=== PATIENT | female | born 1960 | race Caucasian/White ===

== ENCOUNTER 2021-05-07 09:45 | Emergency (ER) | payer BC, OTHER, SELFPAY ==
[2021-05-07 10:00] VITALS: BP 150/99; PULSE 98; RESP 16; TEMP 36.4; O2SAT 99
--- NOTE | 2021-05-07 10:00 | ED.EXTPRO ---
HPI - Extremity Problem General Chief complaint: Extremity Problem,Nontraumatic Stated complaint: left foot pain Time Seen by Provider: 05/07/21 10:06 Source: patient and RN notes reviewed Mode of arrival: ambulatory Limitations: no limitations History of Present Illness HPI Narrative: 60-year-old female presents concern for pain, redness, swelling to the base of the first digit of the left foot. She denies injury, trauma. Reports pain with walking. Reports she used ice, Devan wrap with only very mild relief. She denies any open skin, lacerations, abrasions. Denies any fluctuant areas. MD Complaint: extremity pain Related Data Home Medications Medication Instructions Recorded Confirmed escitalopram oxalate [Lexapro] 10 mg PO DAILY 05/07/21 05/07/21 hydrochlorothiazide 25 mg PO DAILY 05/07/21 05/07/21 simvastatin 40 mg PO DAILY 05/07/21 05/07/21 Allergies Allergy/AdvReac Type Severity Reaction Status Date / Time No Known Allergies Allergy Verified 05/07/21 10:09 Review of Systems Review of Systems: Narrative: CONSTITUTIONAL: Denies malaise, chills, sweats, or fever. CARDIOVASCULAR: Denies chest pain, palpitations, or edema. RESPIRATORY: Denies cough or dyspnea. SKIN: Denies abrasions, lacerations MUSCULOSKELETAL: Reports pain, swelling, redness, warmth of the base of the first digit of left foot NEUROLOGIC: Denies numbness, weakness All systems reviewed & are unremarkable except as noted in HPI and below PMFSH Comments At time of signature, agree with nursing past medical, surgical, social and family history. There is no relevant family history pertinent to the presenting complaint Exam Narrative: Exam Narrative: GENERAL: Well-appearing, well-nourished, and in no acute distress. HEAD: Normocephalic, atraumatic. EYES: PERRLA, conjunctivae clear NECK: Supple. CHEST: Speaks in full sentences. No respiratory distress. HEART: Regular rate and rhythm. Normal and equal peripheral pulses. EXTREMITIES: [Xxx] has normal strength and sensation, normal range of motion. No edema or ecchymosis. 5/5 strength with [xxx] flexion and extension. Normal sensation with sensitivity to light touch and pain. No point tenderness. No open wounds, no skin tenting, no devitalized tissue or atrophy, no trophic changes, no obvious deformity, alignment normal, nearby joints and structures intact. Distal pulses palpable and equal bilaterally, skin warm, dry, pink. Capillary refill less than 3 seconds. SKIN: Warm, dry, no rash. NEURO: Alert and oriented x3. PSYCH: Normal mood and affect Course Course Emergency Course: Patient is aware of diagnosis, understands and agrees to treatment plan. Anticipatory guidance given. Patient agrees to follow-up as directed and is aware of reasons to seek care at the emergency department. Portions of this record may have been created with voice recognition software Vital Signs Vital signs: Reviewed. MDM - Extremity (Nontraumatic) MDM Narrative Medical decision making narrative: Patients pain is consistent with musculoskeletal etiology. No signs of neurological or vascular compromise on exam. Compartments and tissues are soft without signs of compartment syndrome. Pain is felt appropriate for further evaluation on an outpatient basis. Critical Care Time Critical Care Time Critical Care Time: No Discharge Plan Discharge Clinical Impression: Gout Qualifiers: Gout site: foot Gout etiology: unspecified cause Chronicity: acute Laterality: left Qualified Code(s): M10.9 - Gout, unspecified Patient Disposition: Home, Self-Care Condition: Stable Instructions: Low Purine Diet (ED), Gout (ED) Additional Instructions: 1) Please follow-up with your primary care doctor in the next 1-2 days. 2) If you have any urgent concerns please go to the ER. 3) Please take medications as prescribed and continue taking your home medications as usual. 4) Please read and follow information included in discharge instruction
== END 2021-05-07 10:19 | disposition home or self-care (01) ==
PROVIDERS: Emergency Provider Nurse Practitioner; PCP Internal Medicine
DX: M10.9 Gout, unspecified (principal); F41.9 Anxiety disorder, unspecified
CPT/HCPCS: 99213; G0463

== ENCOUNTER 2023-03-10 09:31 | Outpatient (CLI) | payer BC, OTHER, SELFPAY ==
--- NOTE | 2023-03-10 10:30 | NEURO_ITS ---
Impression: Patient reports a history of numbness in both hands. # Early changes suggestive of evolving, mild left carpal tunnel syndrome. # Mild right carpal tunnel syndrome. # Normal needle/EMG exam. # Clinical correlation recommended. Nerve Conduction Studies Anti Sensory Summary Table Stim Site NR Peak (ms) P-T Amp (?V) Site1 Site2 Delta-P (ms) Dist (cm) Victor Manuel (m/s) Left Median Anti Sensory (2-3nd Digit) Wrist 3.7 42.7 Wrist 2-3nd Digit 3.7 14.0 38 Wrist 3.9 29.8 Wrist 2-3nd Digit 3.7 14.0 38 Right Median Anti Sensory (2-3nd Digit) Wrist 4.1 26.8 Wrist 2-3nd Digit 4.1 14.0 34 Wrist 4.0 27.2 Wrist 2-3nd Digit 4.1 14.0 34 Left Radial Anti Sensory (Base 1st Digit) Wrist 2.0 23.3 Wrist Base 1st Digit 2.0 0.0 Right Radial Anti Sensory (Base 1st Digit) Wrist 2.1 40.8 Wrist Base 1st Digit 2.1 0.0 Left Ulnar Anti Sensory (5th Digit) Wrist 2.3 10.1 Wrist 5th Digit 2.3 14.0 61 Right Ulnar Anti Sensory (5th Digit) B Elbow 2.4 12.8 Motor Summary Table Stim Site NR Onset (ms) O-P Amp (mV) Site1 Site2 Delta-0 (ms) Dist (cm) Victor Manuel (m/s) Left Median Motor (Abd Poll Brev) Wrist 3.4 3.7 Elbow Wrist 4.0 23.0 58 Elbow 7.4 4.4 Right Median Motor (Abd Poll Brev) Wrist 3.5 5.1 Elbow Wrist 3.9 22.0 56 Elbow 7.4 3.9 Left Ulnar Motor (Abd Dig Minimi) Wrist 2.8 7.5 A Elbow Wrist 6.0 31.0 52 A Elbow 8.8 6.7 B Elbow Wrist 4.0 21.0 53 B Elbow 6.8 6.9 Right Ulnar Motor (Abd Dig Minimi) Wrist 2.3 6.0 A Elbow Wrist 4.9 27.0 55 A Elbow 7.2 4.1 B Elbow Wrist 2.9 17.0 59 B Elbow 5.2 4.2 F Wave Studies NR F-Lat (ms) L-R F-Lat (ms) Left Median (Mrkrs) (Abd Poll Brev) 27.97 0.52 Right Median (Mrkrs) (Abd Poll Brev) 28.49 0.52 Left Ulnar (Mrkrs) (Abd Dig Min) 28.36 0.10 Right Ulnar (Mrkrs) (Abd Dig Min) 28.46 0.10 EMG Side Muscle Nerve Root Ins Act Fibs Amp Dur Recrt Comment Right 1stDorInt Ulnar C8-T1 Nml Nml Nml Nml Nml Right Ext Indicis Radial (Post Int) C7-8 Nml Nml Nml Nml Nml Right Ext Digitorum Radial (Post Int) C7-8 Nml Nml Nml Nml Nml Right BrachioRad Radial C5-6 Nml Nml Nml Nml Nml Right PronatorTeres Median C6-7 Nml Nml Nml Nml Nml Right Abd Poll Brev Median C8-T1 Nml Nml Nml Nml Nml Left 1stDorInt Ulnar C8-T1 Nml Nml Nml Nml Nml Left Ext Indicis Radial (Post Int) C7-8 Nml Nml Nml Nml Nml Left Ext Digitorum Radial (Post Int) C7-8 Nml Nml Nml Nml Nml Left BrachioRad Radial C5-6 Nml Nml Nml Nml Nml Left PronatorTeres Median C6-7 Nml Nml Nml Nml Nml Left Abd Poll Brev Median C8-T1 Nml Nml Nml Nml Nml MTDD
== END 2023-03-10 09:32 | disposition home or self-care (01) ==
LOC: ANHNEURO 09:33
PROVIDERS: PCP Internal Medicine; Visit Provider Physician Assistant Surgical
DX: G56.03 Carpal tunnel syndrome, bilateral upper limbs (principal)
CPT/HCPCS: 95886; 95911